=== PATIENT | female | born 1970 | race Asian ===

== ENCOUNTER → 2017-04-21 | Outpatient (CLI) | payer OTHER | LOC: FIMAGING 09:12 | PROVIDERS: ATTEND Obstetrics & Gynecology | DX: Z12.31 Encounter for screening mammogram for malignant neoplasm of breast (principal); Z80.3 Family history of malignant neoplasm of breast | CPT/HCPCS: G0202 ==

== ENCOUNTER → 2018-07-11 | Outpatient (CLI) | payer OTHER | LOC: FIMAGING 11:57 | PROVIDERS: ATTEND Family Medicine | DX: M79.661 Pain in right lower leg (principal); M79.662 Pain in left lower leg; M79.89 Other specified soft tissue disorders ==

== ENCOUNTER → 2018-07-12 | Outpatient (CLI) | payer OTHER ==
[~2018-07-12] MED LIST: IOPAMIDOL (ISOVUE 370) 100 ML BTL IV ONE
== END ==
LOC: FIMAGING 14:34
PROVIDERS: ATTEND Family Medicine
DX: J40 Bronchitis, not specified as acute or chronic (principal); R79.1 Abnormal coagulation profile
CPT/HCPCS: Q9967